=== PATIENT | female | born 1955 | race Two or more races ===

== ENCOUNTER 2020-04-04 06:40 | Inpatient (IN) | payer MEDICAID ==
--- NOTE | 2020-03-30 15:45 | Pre-op HX & Phy Repo 2 SIG ---
DATE OF ADMISSION: 04/04/2020 SCHEDULED FOR SURGERY: 04/04/2020. HISTORY OF PRESENT ILLNESS: The patient is a 65-year-old female, in overall stable health who underwent imaging with findings of a mass in the left breast in the inner quadrant, a lobulated mass. Ultrasound revealed the mass to be at 11 o'clock in the left breast 5 cm from the nipple measuring 1.3 x 0.9 x 1.3 cm. Core biopsy revealed papillary carcinoma. Estrogen and progesterone receptor positive, HER2 negative. Ki-67 8%. She was seen in consultation with Medical Oncology, who recommended proceeding with surgery and additional treatment based on final pathology. PAST MEDICAL HISTORY/MEDICATIONS: Lisinopril for hypertension. ALLERGIES: None. OPERATIONS: Appendectomy. REVIEW OF SYSTEMS: 3, para 3. PHYSICAL EXAMINATION: VITAL SIGNS: The patient is 5 feet 2 inches, 108 pounds. Vital signs within normal limits. HEENT: Within normal limits. LUNGS: Clear. HEART: Regular rhythm. BREASTS: Moderately large and ptotic. There is no palpable mass in either breast. There is no axillary or supraclavicular lymphadenopathy. IMPRESSION: Papillary carcinoma, left breast. PLAN: Left breast partial mastectomy with preoperative needle localization and left axillary lymph node biopsy. DISCUSSION: I have had a full discussion with the patient regarding the nature of her condition, the nature of the surgery, indications, alternatives, options, and risks including bleeding, infection, scarring or distortion of breast or nipple, neuritis or neuralgia, need for additional treatment including surgery, radiation therapy, chemotherapy, hormonal therapy based on final pathology. All questions have been answered. The patient understands and agrees to proceed. Ignacio Floyd M.D. DR: HELADIO JOB#: [id number] CC:
[2020-04-01 08:29] LABS: BASOPHILS % (AUTO) 0.6 % (0.0-2.0); HEMATOCRIT 47.6 % (37.0-47.0); HEMOGLOBIN 15.3 G/DL (12.0-16.0); LYMPHOCYTES % (AUTO) 23.3 % (20.0-45.0); MEAN CORPUSCULAR VOLUME 101 FL (80-99); MONOCYTES % (AUTO) 5.8 % (1.0-10.0); NEUTROPHILS % (AUTO) 69.4 % (45.0-75.0); PLATELET COUNT 258 K/UL (150-450); RED BLOOD COUNT 4.73 M/UL (4.20-5.40); WHITE BLOOD COUNT 8.4 K/UL (4.8-10.8)
[2020-04-01 08:36] LABS: APPEARANCE,URINE CLEAR; BILIRUBIN, URINE NEGATIVE (NEGATIVE); GLUCOSE, URINE (UA) NEGATIVE (NEGATIVE); KETONES,URINE NEGATIVE (NEGATIVE); LEUKOCYTE ESTERASE ,URINE NEGATIVE (NEGATIVE); NITRITE,URINE NEGATIVE (NEGATIVE); PH,URINE 6 (4.5-8.0); PROTEIN,URINE NEGATIVE (NEGATIVE); UROBILINOGEN,URINE NORMAL MG/DL (0.0-1.0)
[2020-04-01 08:37] LABS: COLOR,URINE YELLOW
[2020-04-01 08:44] LABS: INR 0.9 (0.9-1.1)
[2020-04-01 08:45] LABS: ANION GAP 6 mmol/L (5-15); BLOOD UREA NITROGEN 18 mg/dL (7-18); CARBON DIOXIDE 30 MMOL/L (21-32); CHLORIDE 104 MMOL/L (98-107); CREATININE 0.6 MG/DL (0.55-1.30); POTASSIUM 4.4 MMOL/L (3.5-5.1); SODIUM 140 MMOL/L (136-145)
--- NOTE | 2020-04-01 16:08 | Cardiology Report ---
APPROVED REPORT EKG Measurement Heart [id number] <Conclusion> Normal sinus rhythm Low voltage QRS Borderline ECG
--- NOTE | 2020-04-01 18:28 | Diagnostic Imaging Report ---
EXAM: XR Chest, 1 View CLINICAL HISTORY: PREOP TECHNIQUE: Frontal view of the chest. COMPARISON: No relevant prior studies available. FINDINGS: Lungs: Unremarkable. No consolidation. Pleural space: Unremarkable. No pneumothorax. Heart: Unremarkable. No cardiomegaly. Mediastinum: Unremarkable. Bones/joints: Mediastinal position suggest possible pectus excavatum, evaluation limited due to PA only imaging. IMPRESSION: 1. Mediastinal position suggest possible pectus excavatum, evaluation limited due to PA only imaging. 2. Otherwise unremarkable study.
[~2020-04-04] VITALS: Ht 152.4 cm; Wt 48.5 kg
[2020-04-04] VITALS (15 sets, daily range): BP systolic 66–167; BP diastolic 40–110
[~2020-04-04 06:40] MED LIST: LISINOPRIL2.5 MG ORAL
--- NOTE | 2020-04-04 07:19 | Anethesia Preoperative Eval ---
Anesthesia Pre-op PMH/ROS General Date of Evaluation: Apr 04, 2020 Anesthesiologist: Ameya ASA Score: ASA 3 Mallampati Score Class I : Soft palate, uvula, fauces, pillars visible Class II: Soft palate, uvula, fauces visible Class III: Soft palate, base of uvula visible Class IV: Only hard plate visible Mallampati Classification: Class I Surgeon: Everett Diagnosis: Left breast cancer Surgical Procedure: Left breast partial mastectomy and axillary lymph node biopsy Anesthesia History: none Family History: no anesthesia problems Allergies: Coded Allergies: No Known Allergies (Unverified , 04/04/20) Medications: see eMAR Patient NPO?: Yes NPO Date: Apr 04, 2020 NPO Time: 00:00 Past Medical History Cardiovascular: Reports: HTN, other - HLD; Denies: CAD, PR, valve dz, arrhythmia Pulmonary: Denies: asthma, COPD, ROBB, other Gastrointestinal/Genitourinary: Denies: GERD, CRI, ESRD, other Neurologic/Psychiatric: Denies: dementia, CVA, depression/anxiety, TIA, other Endocrine: Denies: DM, hypothyroidism, steroids, other HEENT: Denies: cataract (L), cataract (R), glaucoma, ANGOON (L), ANGOON (R), other Hematology/Immune: Reports: other - left breast cancer; Denies: anemia, DVT, bleeding disorder Musculoskeletal/Integumentary: Denies: OA, RA, DJD, DDD, edema, other PSxH Narrative: appendectomy Anesthesia Pre-op Phys. Exam Physician Exam see chart Constitutional: NAD Cardiovascular: RRR Respiratory: CTA Airway Exam Mallampati Score: Class I MO: full ROM: full Teeth: intact Anesthesia Pre-op A/P Labs see chart Studies Pre-op Studies: EKG - sr Risk Assessment & Plan Assessment: ASA III Plan: GA Status Change Before Surgery: No Pre-Antibiotics Drug: Ancef 1g Given Within 1 Hr of Incision: Yes Jeanne Hou MD Apr 04, 2020 07:19
[2020-04-04] MEDS ORDERED: Bacitracin 50000 Units Vial ONE (07:21)
[2020-04-04] MEDS ORDERED: Lidocaine 1% MPF 10mg/ml 5ml ONE (07:23)
[2020-04-04] MEDS ORDERED: fentaNYL 100 mcg/2 mL IV ONE (07:23)
[2020-04-04] MEDS ORDERED: Midazolam 2mg/2ml Inj ONE ×7 (07:23→11:21)
[2020-04-04] MEDS ORDERED: fentaNYL 100 mcg/2 mL IV PRN (07:45)
[2020-04-04] MEDS ORDERED: DiphenhydrAMINE 50mg/ml Inj IVP PRN (07:45)
[2020-04-04] MEDS ORDERED: Midazolam 2mg/2ml Inj IVP PRN (07:45)
[2020-04-04] MEDS ORDERED: Hydromorphone 0.5mg/0.5ml inj IVP PRN (07:45)
[2020-04-04] MEDS ORDERED: LORazepam Inj 2mg/ml 1ml IV PRN (07:45)
[2020-04-04] MEDS ORDERED: Labetalol 5mg/ml 20ml vial IV PRN (07:45)
[2020-04-04] MEDS ORDERED: Ketorolac 30mg Inj IV PRN (07:45)
[2020-04-04] MEDS ORDERED: Metoclopramide 10mg/2ml Inj IVP PRN ×2 (07:45→10:15)
[2020-04-04] MEDS ORDERED: LR 1000ml 1,000 ML IVLG SCH (07:45)
--- NOTE | 2020-04-04 08:16 | Pre-Procedure Note/Attestation ---
Pre-Procedure Note/Attestation Complete Prior to Procedure Planned Procedure: left Procedure Narrative: left breast partial mastectomy with pre-operative needle localization and left axillary lymph node biopsy Indications for Procedure Pre-Operative Diagnosis: papillary carcinoma left breast Attestation I attest that I discussed the nature of the procedure; its benefits; risks and complications; and alternatives (and the risks and benefits of such alternatives), prior to the procedure, with the patient (or the patient's legal outbound telemarketing representative). I attest that, if there was a reasonable possibility of needing a blood transfusion, the patient (or the patient's legal outbound telemarketing representative) was given the [facility] standardized written summary, pursuant to the Shahram Greyson Blood Safety Act ([place] Health and Safety Code # 1645, as amended). I attest that I re-evaluated the patient just prior to the surgery and that there has been no change in the patient's H&P, except as documented below: none Ignacio Floyd MD Apr 04, 2020 08:16
[2020-04-04] MEDS ORDERED: Sterile Water Irrig 1000ml IRRIG ONE (08:30)
[2020-04-04] MEDS ORDERED: LR 1000ml ONE (08:30)
[2020-04-04] MEDS ORDERED: NS Irrig 1000ml ONE (08:30)
[2020-04-04] MEDS ORDERED: HYDROmorphone 1mg/ml Carpuject SUBQ PRN (10:15)
[2020-04-04] MEDS ORDERED: HYDROcodone/Acetamin 5/325 tab ORAL PRN (10:15)
--- NOTE | 2020-04-04 10:23 | Brief Operative Note ---
Immediate Post Operative Note Operative Note Pre-op Diagnosis: papillary carcinoma left breast Procedure: left breast partial mastectomy with pre-operative needle localization and left axillary lymph node biopsy Post-op Diagnosis: same Post-op Diagnosis: same as pre-op Findings: consistent w/pre-op dx studies Surgeon: chuckie Anesthesiologist: kalina Anesthesia: general Specimen: yes - left breast partial mastectomy, left axillary lymph nodes Complications: none Fluids: see anesthesia record Estimated Blood Loss: minimal Drains: JASON Implant(s) used?: No Ignacio Floyd MD Apr 04, 2020 10:23
--- NOTE | 2020-04-04 10:36 | Immediate Post-Op Evaluation ---
Immediate Post-Op Evalulation Immediate Post-Op Evalulation Procedure: Left breast partial mastectomy Date of Evaluation: Apr 04, 2020 Time of Evaluation: 10:34 IV Fluids: 1.1L Blood Products: 0 Estimated Blood Loss: min Urinary Output: 0 Pulse Rate: 84 Respiratory Rate: 16 O2 Sat by Pulse Oximetry: 100 Temperature (Fahrenheit): 97.7 Pain Score (1-10): 0 Nausea: No Vomiting: No Complications 0 Patient Status: awake, reacts, patent, none Hydration Status: adequate Drug: Ancef 1g Given Within 1 Hr of Incision: Yes Jeanne Hou MD Apr 04, 2020 10:36
--- NOTE | 2020-04-04 11:14 | Operative Note - Dictated ---
DATE OF OPERATION: 04/04/2020 SURGEON: Ignacio Floyd MD. STATISTICAL MACHINE SERVICER: None. ANESTHESIOLOGIST: Dr. Jeanne Hou. TYPE OF ANESTHESIA: General. PREOPERATIVE DIAGNOSIS: Papillary carcinoma, left breast. POSTOPERATIVE DIAGNOSIS: Papillary carcinoma, left breast. OPERATION PERFORMED: Left breast partial mastectomy with preoperative needle localization and left axillary lymph node biopsy. DESCRIPTION OF PROCEDURE: The patient was taken to the operating room and under general anesthesia with sequential compression device stockings in place, she was prepped and draped in usual fashion. The lesion was located in the left breast upper inner quadrant 5 cm from the nipple measuring nearly 1.5 cm. A curvilinear breast incision was made and flaps dissected circumferentially and the wire brought into the field. It was then possible to readily palpate the lesion. A wide excision partial mastectomy was performed achieving hemostasis with cautery. The specimen was marked with sutures anterior, medial and superior. The pathologist inspected the tissue and found the closest margin was superior 5 mm margin, so additional superior tissue was taken. The field was irrigated with distilled water and then with antibiotic solution and hemostasis carefully achieved with cautery. The incision was closed with interrupted 2-0 Vicryl deep dermal subcutaneous sutures followed by continuous 4-0 Monocryl subcuticular suture. A vertical left axillary incision was made achieving hemostasis with cautery and incising the clavipectoral fascia. Several obvious lymph nodes were excised, resected using the Thunderbeat vessel sealing electrosurgical device. The pathologist confirmed the presence of the lymph nodes. There were no other palpable or visible nodes. Through a separate stab incision inferiorly, a 10 flat Hany drain was placed into the axilla and sutured the skin with 2-0 nylon skin suture. The field was irrigated and hemostasis carefully secured. The clavipectoral fascia was closed with interrupted 3-0 Vicryl and subcutaneous tissues closed with interrupted 3-0 Vicryl and the skin closed with continuous 4-0 Monocryl subcuticular suture. Mastisol and half-inch Steri-Strips were applied to both incisions followed by dry sterile dressing final sponge needle counts were correct. The patient tolerated the procedure well and left the operating room in good condition. A postoperative surgical was applied. Ignacio Floyd M.D. DR: TATIANA JOB#: [id number] CC:
--- NOTE | 2020-04-04 12:00 | NUR ---
NURSE NOTES: Patient arrived to unit at 1125 via bed from PACU. Received report from Keyonna CATES. Patient is drowsy but arousable on arrival, in no apparent distress, reporting no pain. Surgical site dressing clean, dry, intact, JASON drain compressed. IV intact, patent. Patient oriented to room, provided with call light, placed on continuous pulseox, saturating 100% on 2L NC. Side rails upx2, bed low and locked, call light within reach.
[2020-04-04] MEDS ORDERED: D5 1/2NS w/KCl 20mEq 1,000 ML IV SCH (13:00)
[2020-04-04] MEDS: ceFAZolin sod 1 GM in D5W 55 ML IV SCH ×2 (16:25→23:56)
--- NOTE | 2020-04-04 19:25 | NUR ---
NURSE HAND-OFF: Important Events on Shift: Ambulated, voided, weaned off 02. Patient Status: stable Diet: Regular Pending Orders: N/A Pending Results/Labs: N/A Pending MD notification: N/A Latest Vital Signs: Temperature 97.4 , Pulse 89 , B/P 133 /66 , Respiratory Rate 16 , O2 SAT 97 , Room Air . Vital Sign Comment: VS stable Latest Garcia Fall Score: 35 Fall Risk: Medium Risk Safety Measures: Call light Within Reach, Bed Alarm , Side Rails Side Rails x2, Bed position Low and Locked. Fall Precautions: Yellow Socks Patient Fall Education Report given to Fidelia CATES.
--- NOTE | 2020-04-04 19:45 | NUR ---
NURSE NOTES: Received report from DARRYN David. Patient in stable condition, denies any pain as of the moment. Patient appears comfortable.
[2020-04-05 04:00] VITALS: BP 123/73
--- NOTE | 2020-04-05 06:19 | NUR ---
NURSE HAND-OFF: Important Events on Shift:Emptied 10 mL of serosanguinous liquid from JASON drain. Patient denies any pain throughout the night. Converted PIV to heplock, patient tolerating food and fluids well. Voiding well. Drain teaching needs some reinforcement d/t language barrier Patient Status: stable Diet: regular Pending Orders: [] Pending Results/Labs:[] Pending MD notification:[] Latest Vital Signs: Temperature 98.2 , Pulse 76 , B/P 123 /73 , Respiratory Rate 20 , O2 SAT 100 , Room Air, O2 Flow Rate 2.0 . Vital Sign Comment: [] Latest Garcia Fall Score: 35 Fall Risk: Medium Risk Safety Measures: Call light Within Reach, Bed Alarm , Side Rails Side Rails x2, Bed position Low and Locked. Fall Precautions: Patient Fall Education Report given to Joann CATES
--- NOTE | 2020-04-05 07:30 | NUR ---
NURSE NOTES: Received report from Fidelia CATES. Patient is awake and oriented, in no apparent distress, reporting mild pain at surgical site. Surgical site dressing clean, dry, intact, JASON drain compressed. SCD's in place. IV intact. Patient updated on plan of care for the day. Side rails upx2, bed low and locked, call light within reach.
--- NOTE | 2020-04-05 07:37 | NUR ---
NURSE NOTES: Report given to Joann CATES
[2020-04-05 08:00] VITALS: BP 130/61
--- NOTE | 2020-04-05 08:13 | General Progress Note ---
Progress Note Progress Note AVSS Having some difficulty ambulating independently, and learning care of JASON drain Left breast and axilla incisions clean and dry with intact steristrips JASON 10cc serosang Imp: Stable but needing assistance Plan: Continue in-patient care, with JASON drain teaching Ignacio Floyd MD Apr 05, 2020 08:13
--- NOTE | 2020-04-05 08:35 | 48 Hour Post Anesthesia Eval ---
Post Anesthesia Evaluation Procedure: Left breast partial mastectomy Date of Evaluation: Apr 05, 2020 Time of Evaluation: 08:34 Blood Pressure Systolic: 130 0: 81 Pulse Rate: 78 Respiratory Rate: 17 Temperature (Fahrenheit): 98.1 O2 Sat by Pulse Oximetry: 98 Airway: patent Nausea: No Vomiting: No Pain Intensity: 2 Hydration Status: adequate Cardiopulmonary Status: Stable Mental Status/LOC: patient returned to baseline Follow-up Care/Observations: 0 Post-Anesthesia Complications: 0 Follow-up care needed: N/A Norberto Irene MD Apr 05, 2020 08:35
[2020-04-05] MEDS: Lisinopril 2.5mg tab ORAL SCH (09:06)
[2020-04-05] MEDS ORDERED: LISINOPRIL5 MG ORAL (09:16)
[2020-04-05 11:41] VITALS: BP 116/61
--- NOTE | 2020-04-05 13:27 | NUR ---
CASE MANAGEMENT:INITIAL REVIEW 04/04/20 65 YR OLD FEMALE FROM HOME FOR SCHEDULED SURGERY CC;PAPILLARY CARCINOMA OF LEFT BREAST SI;LT BREAST PARTIAL MASTECTOMY W/LT LYMPH NODE BIOPSY 97.0 78 18 149/80 98% ON RA IS;CEFAZOLIN IV Q8 IVF D5 ELECTROLYTES @ 75 ML/HR ADMITTED TO MED SURG MED SURG STATUS DCP;FROM HOME CASE MANAGEMENT:CONCURRENT REVIEW 04/05/20 SI;POD #1 LT BREAST PARTIAL MASTECTOMY 98.7 78 20 130/81 98% ON RA IS;LISINOPRIL PO QD TYLENOL PO Q6 PRN MED SURG STATUS DCP;FROM HOME
[2020-04-05 16:00] VITALS: BP 101/54
--- NOTE | 2020-04-05 19:34 | NUR ---
NURSE HAND-OFF: Important Events on Shift: Ambulated, taught drain care. Patient Status: stable Diet: Regular Pending Orders: N/A Pending Results/Labs: N/A Pending MD notification: N/A Latest Vital Signs: Temperature 98.3 , Pulse 68 , B/P 101 /54 , Respiratory Rate 16 , O2 SAT 96 , Room Air. Vital Sign Comment: VS stable Latest Garcia Fall Score: 35 Fall Risk: Medium Risk Safety Measures: Call light Within Reach, Bed Alarm , Side Rails Side Rails x2, Bed position Low and Locked. Fall Precautions: Patient Fall Education Report given to Roma CATES.
[2020-04-05 20:00] VITALS: BP 107/59
--- NOTE | 2020-04-05 20:14 | NUR ---
NURSES NOTE: Received report from DARRYN David. Rounds made. Pt in bed, [place]ican speaking but is able to answer simple questions appropriately. Denies having pain or discomfort at this time. No outward s/s of distress noted. Breathing pattern is even and unlabored on RA. Dressing, clean and intact with surgical bra in place. JASON drain L side in place. Bulb engaged. Pt to empty personally for JASON drain teaching. All due medications will be administered. Bed at lowest level. Call light within reach. Pt will continue to be monitored.
[2020-04-06 04:00] VITALS: BP 118/61
--- NOTE | 2020-04-06 06:51 | NUR ---
NURSE HAND-OFF: Important Events on Shift:[Pt emptied own JASON drain. Forgot to engage bulb. Teaching done. Pt expressed understanding by demonstration] Patient Status: [stable] Diet: [regular] Pending Orders: [none] Pending Results/Labs:[none] Pending MD notification:[none] Latest Vital Signs: Temperature 98.2 , Pulse 63 , B/P 118 /61 , Respiratory Rate 17 , O2 SAT 98 , Room Air, O2 Flow Rate 2.0 . Vital Sign Comment: [WNL] Latest Garcia Fall Score: 35 Fall Risk: Medium Risk Safety Measures: Call light Within Reach, Bed Alarm , Side Rails Side Rails x2, Bed position Low and Locked. Fall Precautions: Patient Fall Education Report given to [].
--- NOTE | 2020-04-06 07:24 | NUR ---
HAND OFF: Report given to DARRYN Sullivan.
--- NOTE | 2020-04-06 07:30 | NUR ---
NURSE NOTES: Patient is in bed awake and able to verbalize needs. Stable. Denies pain or SOB. Patient instructed to use call light for assistance, verbalized understanding. Patient is able to empty and monitor JASON drain. Surgical dressing c/d/i. Patient is in bed in locked and lowest position with call light within reach. All safety measures provided. All needs met at this time. Will continue to monitor.
[2020-04-06 08:00] VITALS: BP 146/74
--- NOTE | 2020-04-06 08:35 | General Progress Note ---
Progress Note Progress Note AVSS Much more comfortable and independent. Has learned care of JASON drain Left breast and axilla incisions clean and dry. Imp: improved Plan: Discharge with JASON drain Instructions/limitations/supplies provided/discussed Ignacio Floyd MD Apr 06, 2020 08:35
[2020-04-06] MEDS: Lisinopril 2.5mg tab ORAL SCH (08:58)
--- NOTE | 2020-04-06 09:00 | NUR ---
NURSE NOTES: Patient was given thorough discharge instructions by Dr. Floyd. Patient verbalized understanding. Patient is able to empty JASON and monitor output independently. Surgical dressing changed by surgeon. Surgeon assessed patient an cleared her for discharge home.
[2020-04-06 12:00] VITALS: BP 137/77
--- NOTE | 2020-04-06 15:20 | NUR ---
NURSE NOTES: Patient discharged with family member in stable condition. Discharge instruction given to patient and family member and verbalized understanding. JASON education provided. IV and ID removed. Belonging given to patient. Patient ambulated out with all personal belongings with steady gait.
--- NOTE | 2020-04-08 12:19 | Discharge Summary ---
Discharge Summary Hospital Course Date of Admission Apr 04, 2020 at 11:46 Date of Discharge Apr 06, 2020 at 15:20 Admitting Diagnosis Papillary carcinoma, left breast. Reason for Hospitalization: elective surgery [facility] Boo Berger Ma is a 65 year old female who was admitted on Apr 04, 2020 at 11:46 for Papillary carcinoma, left breast. Patient was admitted for elective surgery. Procedures s/p 04/04/[address] Floyd Left breast partial mastectomy with preoperative needle localization and left axillary lymph node biopsy Hospital Course status post surgery course of recovery uneventful initially IV fluids s/p perioperative antibiotic JASON drain output was closely monitored left breast and axilla incisions remained clean and dry with intact Steri-Strips JASON drain teaching provided ambulation encouraged, able to ambulate without difficulties pain management was addressed and controlled remained hemodynamically stable use of incentive spirometry was encouraged while in the bed tolerated diet , IV fluids discontinued antiemetics were on board as needed blood pressure was managed with Lisinopril and remained stable voided freely patient was stable for discharge instruction/limitations/supplies provided/discussed follow up with surgeon in the office as advised FINAL DIAGNOSES Papillary carcinoma, left breast. s/p Left breast partial mastectomy with preoperative needle localization and left axillary lymph node biopsy Discharge Medications Continued Medications: Lisinopril (Lisinopril*) 5 Mg Tablet 5 MG ORAL DAILY for Hypertension, TAB Discharge Condition Upon Discharge: stable Discharge Vital Signs Last Vital Signs Date Time Temp Pulse Resp B/P (MAP) Pulse Ox O2 Delivery O2 Flow Rate FiO2 04/06/20 12:00 98.2 74 18 137/77 (97) 98 04/06/20 09:00 Room Air 04/04/20 13:00 2.0 Discharge Disposition Patient was discharged home Discharge Instructions Discharge Instructions Special Instructions I have been assigned to complete a D/C Summary on this account. I was not involved in the patient management Nel Mcguire NP Apr 08, 2020 12:19
== END 2020-04-06 15:20 | disposition home or self-care (01) | DRG 363 ==
LOC: SUR 06:40 → 3E 11:46
PROC: 07B60ZX Excision of Left Axillary Lymphatic, Open Approach, Diagnostic (ICD-10-PCS; 2020-04-04)
PROC: 0HBU0ZZ Excision of Left Breast, Open Approach (ICD-10-PCS; principal; 2020-04-04 08:00)
DX: C50.212 Malignant neoplasm of upper-inner quadrant of left female breast (principal); Z17.1 Estrogen receptor negative status [ER-]; I10 Essential (primary) hypertension
CPT/HCPCS: 36415; 71045; 80048; 81003; 85025; 85610; 85730; 93005; 94003; 94150; J2250; J2405; U0002